=== PATIENT | female | born 1980 | race Caucasian/White ===

== ENCOUNTER 2016-10-24 05:56 | Outpatient (CLI) | payer OTHER ==
[~2016-10-24] VITALS: Ht 160 cm; Wt 71.8 kg
[2016-10-24 06:13] VITALS: Ht 160 cm; Wt 71.8 kg
[2016-10-24] MEDS ORDERED: PRENTAB26 PO ×2 (06:13)
[2016-10-24] MEDS ORDERED: DOCU-94 PO ×2 (06:13)
--- NOTE | 2016-10-27 14:12 | EDITING REQUIRED CODING QUERY ---
DIAGNOSIS NEEDED To promote full compliance with coding requirements relating to patient care, physician participation is requested in all cases of seamless tube mill operator uncertainty. Please assist us with the question(s) below: Coding Question: The patient received care in labor and delivery on 10/24/16 as noted within the record. Please document the diagnosis that is being addressed by the medication/treatment. Provider Response: DIAGNOSIS: uterine contractions Thank you for your assistance, Adeline Bruno - Conditioning Machine Operator
== END 2016-10-24 10:15 | disposition home or self-care (01) ==
LOC: C.LD 05:56 → C.OPB 05:56
PROVIDERS: ATTEND Obstetrics & Gynecology
DX: O62.9 Abnormality of forces of labor, unspecified (principal); Z3A.39 39 weeks gestation of pregnancy

== ENCOUNTER 2016-10-25 19:47 | Inpatient (IN) | payer OTHER ==
[~2016-10-25] VITALS: Ht 160 cm; Wt 70.9 kg
[~2016-10-25 19:47] MED LIST: DOCU-94 PO; PRENTAB26 PO
[2016-10-25] MEDS ORDERED: LACTATED RINGER'S 1000ML 1,000 ML IV SCH (20:29)
[2016-10-25] MEDS ORDERED: LACTATED RINGER'S 1000ML 1,000 ML IV PRN (20:29)
[2016-10-25] MEDS ORDERED: LACTATED RINGER'S 1000ML 500 ML IV PRN ×2 (20:37→23:34)
[2016-10-25] MEDS ORDERED: OXYTOCIN 30 UNITS/500ML NSS IV PRN (20:45)
[2016-10-25 20:49] LABS: HEMATOCRIT 34.7 % (37-47); MEAN CELL VOLUME 87.2 fL (80-100); MEAN CORPUSCULAR HEMOGLOBIN 31.2 pg (25-34); MEAN CORPUSCULAR HGB CONC 35.7 g/dl (32-36); MEAN PLATELET VOLUME 11.1 fL (7.4-10.4); PLATELET COUNT 192 K/uL (130-400); RED BLOOD COUNT 3.98 M/uL (4.2-5.4); WHITE BLOOD COUNT 15.65 K/uL (4.8-10.8)
[2016-10-25 21:29] VITALS: Ht 160 cm; Wt 70.9 kg
[2016-10-25] MEDS ORDERED: FENTANYL 2MCG/ML ROPIV 1.25MG/ML 100ML BAG EPI ONE (22:38)
[2016-10-25] MEDS ORDERED: FENTANYL CITRATE INJ 50 MCG/1 ML 2 ML VIAL ONE (22:38)
[2016-10-25] MEDS ORDERED: EpHEDrine SULFATE INJ 50 MG/ML AMP ONE (22:38)
[2016-10-25] MEDS ORDERED: BUPIVACAINE 0.25% 30 ML VIAL ONE (22:38)
[2016-10-25] MEDS ORDERED: NALOXONE HCL INJ 1 MG in SODIUM CHLORIDE 0.9% 1000ML 1,000 ML IV PRN (23:34)
[2016-10-25] MEDS ORDERED: NALOXONE HCL INJ 0.4 MG/1 ML VIAL/CARP IV PRN (23:45)
[2016-10-25] MEDS ORDERED: ONDANSETRON INJ 2 MG/ML 2 ML VIAL IV PRN (23:45)
[2016-10-25] MEDS ORDERED: NALBUPHINE HCL INJ 10 MG/ML AMP IV PRN (23:45)
[2016-10-25] MEDS ORDERED: EpHEDrine SULFATE INJ 50 MG/ML AMP IV PRN (23:45)
[2016-10-25] MEDS ORDERED: FENTANYL 2MCG/ML ROPIV 1.25MG/ML 100ML BAG EPI PRN (23:45)
[2016-10-25] MEDS ORDERED: DiphenhydrAMINE HCL 50 MG/ML VIAL IV PRN (23:45)
[2016-10-26] MEDS ORDERED: LANOLIN OINT EXT PRN ×2 (03:15)
[2016-10-26] MEDS ORDERED: HYDROCORTISONE ACETATE 25 MG SUPP PR PRN (03:15)
[2016-10-26] MEDS ORDERED: OXYTOCIN 30 UNITS/500ML NSS IV PRN (03:15)
[2016-10-26] MEDS ORDERED: ACETAMINOPHEN 325 MG TAB PO PRN (03:15)
[2016-10-26] MEDS ORDERED: DIPHTHERIA/TETANUS/PERTUSSIS 0.5 ML SYR/VIAL IM. ONE (03:15)
[2016-10-26] MEDS ORDERED: BENZOCAINE 20% AER SPR 82.5 GM CAN EXT PRN (03:15)
[2016-10-26] MEDS: SUPERCREAM 0.870 % 15GM JAR EXT PRN (05:23)
[2016-10-26 05:56] VITALS: BP 101/54; PULSE 74; TEMP 37.2
--- NOTE | 2016-10-26 07:18 | DELIVERY SUMMARY ---
DATE OF OPERATION: 10/26/2016 FINDINGS: Viable female with Apgars of 8 and 9. Baby delivered spontaneously over an intact perineum. Cord blood samples obtained. Placenta delivered spontaneously. Estimated blood loss 300 cc. LABOR NOTE: The patient is a 36-year-old 3 para 1 with an EDC of 10/15/2016 at 41+ weeks gestational age who presented with spontaneous rupture of membranes. The patient states the membranes ruptured at approximately 1830 hours on the 25 of October. Subsequent mild contractions. The patient had been scheduled for induction on 10/26/2016. The patient has had a benign course. Blood type B positive, antibody negative, Rubella immune hepatitis B negative. She declined a quad screen. She had an elevated 1 hour Glucola 28 weeks. The patient refused to do a 2-hour glucose tolerance test. She had a negative third trimester beta strep culture. On admission the patient was 2 cm dilated, 50% effaced, -2 station with a category 2 tracing. Because of the rupture of membranes postdates the patient was started on Pitocin per induction protocol. She progressed to a regular labor pattern. Anesthesia was consulted and an epidural was placed. She progressed to full dilatation, began her second stage. She pushed for approximately 15 minutes delivering the viable female infant over an intact perineum. Cord was clamped and cut. Cord blood samples obtained. Placenta was delivered spontaneously. Estimated blood loss was 300 cc. Sponge and needle count was correct. I attest to the content of the Intraoperative Record and any orders documented therein. Any exceptio ns are noted below.
[2016-10-26] MEDS: DOCUSATE SODIUM 100 MG CAP PO SCH ×2 (07:35→20:40)
[2016-10-26] MEDS: PRENATAL VITAMIN TAB PO SCH (07:35)
[2016-10-26] MEDS: FERROUS SULFATE 325 MG TAB PO SCH (07:35)
[2016-10-26] MEDS: IBUPROFEN 600 MG TAB PO PRN ×3 (07:36→16:51)
[2016-10-26 07:40] VITALS: BP 96/56; PULSE 59; TEMP 36.7; O2SAT 98
--- NOTE | 2016-10-26 08:39 | Anesthesia Procedure Note ---
Anesthesia Epidural Removal Nt Date & Time Oct 26, 2016 at 08:38 Vital Signs Pain Intensity: 4.0 Vital Signs Past 12 Hours Date Time Temp Pulse Resp B/P Pulse Ox O2 Delivery O2 Flow Rate FiO2 10/26/16 06:04 Room Air 10/26/16 05:56 37.2 74 16 101/54 Room Air Notes Mental Status: alert / awake / arousable, participated in evaluation Nausea / Vomiting: adequately controlled Pain: adequately controlled Airway Patency, RR, SpO2: stable & adequate BP & HR: stable & adequate Hydration State: stable & adequate Neuraxial Anesthesia: was administered Anesthetic Complications: no major complications apparent, pt satisfied with anesthetic care Epidural: removed without complications, with tip intact
[2016-10-26 12:50] VITALS: BP 100/65; PULSE 57; TEMP 36.4; O2SAT 97
[2016-10-26 16:50] VITALS: BP 130/77; PULSE 52; TEMP 36.4; O2SAT 97
[2016-10-26 20:00] VITALS: BP 105/59; PULSE 63; TEMP 36.6
[2016-10-26] MEDS: OXYCODONE/ACETAMINOPHEN 5-325 TAB PO PRN (20:41)
[2016-10-27 01:01] VITALS: BP 110/60; PULSE 60; TEMP 36.5
[2016-10-27] MEDS: OXYCODONE/ACETAMINOPHEN 5-325 TAB PO PRN ×2 (02:53→08:46)
--- NOTE | 2016-10-27 06:52 | Progress Note ---
Subjective Oct 27, 2016. Subjective conversation w/ patient, physical exam Ambulation: ambulating normally Voiding: no voiding problems Passing Gas: Yes Diet Tolerance: Regular Diet Lochia: Small Feeding Type: Bottle Feeding Pain: Percocet overnight for cramping Review of Systems Constitutional: No chills, No fever Respiratory: No cough, No shortness of breath Cardiac: No chest pain Breast: No breast pain Abdomen: No nausea, No pain, No vomiting Female : No dysuria Objective Vital Signs Date Time Temp Pulse Resp B/P Pulse Ox O2 Delivery O2 Flow Rate FiO2 10/27/16 01:04 Room Air 10/27/16 01:01 36.5 60 16 110/60 Room Air 10/26/16 20:00 36.6 63 16 105/59 10/26/16 16:50 97 Room Air 10/26/16 16:50 36.4 52 18 130/77 97 Room Air 10/26/16 12:50 36.4 57 20 100/65 97 Room Air 10/26/16 07:40 36.7 59 18 96/56 98 Room Air 10/26/16 07:40 98 Room Air Physical Exam General Appearance: WELL-APPEARING, WD/WN, NO APPARENT DISTRESS Respiratory/Chest: lungs clear, normal breath sounds Cardiovascular: regular rate, rhythm, no gallop, no murmur Abdomen: non tender, soft Fundus: Firm, Relation to Umbilicus (Firm 1cm below umbilicus) Extremities: no calf tenderness Laboratory Results Last 24 Hours Test 10/27/16 04:44 Medications Current Inpatient Medications Medications (Trade) Dose Ordered Sig/Hitesh Route Start Time Stop Time Status Last Admin Dose Admin Oxytocin (Pitocin IV) 30 units UD PRN IV 10/26/16 03:15 11/25/16 03:14 Benzocaine (Dermoplast Aero Spr) 1 appln PRN PRN EXT 10/26/16 03:15 11/25/16 03:14 10/26/16 05:23 1 APPLN Cocaine HCl (Supercream 0.870% Cr) BID PRN EXT 10/26/16 03:15 11/09/16 03:14 10/26/16 05:23 15 GM Hydrocortisone Acetate (Anusol Hc Supp) [address] 10/26/16 03:15 11/25/16 03:14 Lanolin (Lanolin Oint) PRN PRN EXT 10/26/16 03:15 11/25/16 03:14 Prenat Multivit/ [place]/Iron/Folic Ac ( Vitamin Tab) 1 tab DAILY PO 10/26/16 08:00 11/25/16 07:59 10/26/16 07:35 1 TAB Ibuprofen (Motrin Tab) 600 mg Q4H PRN PO 10/26/16 03:15 11/25/16 03:14 10/26/16 16:51 600 MG Acetaminophen (Tylenol Tab) 650 mg Q6H PRN PO 10/26/16 03:15 11/25/16 03:14 10/26/16 11:06 650 MG Bisacodyl (Dulcolax Tab) 5 mg 20 PO 10/27/16 20:00 10/27/16 20:01 Docusate Sodium (coLACE CAP) 100 mg BID PO 10/26/16 08:00 11/25/16 07:59 10/26/16 20:40 100 MG Ferrous Sulfate (Feosol Tab) 325 mg DAILY PO 10/26/16 08:00 11/25/16 07:59 10/26/16 07:35 325 MG Oxycodone/ Acetaminophen (Percocet 5-325mg Tab) `1-2 tabs for pain 1 tab ... Q4H PRN PO 10/26/16 20:15 11/09/16 20:14 10/27/16 02:53 2 TAB Assessment and Plan Post- Day#: 1 Continue Routine Care: - Vital Signs reviewed and WNL (temp max 36.5) - Blood Type: B+, GBS- , Rubella Immune - Patient doing well clinically - Encourage Ambulation today - No pain reported this morning, received a Percocet overnight for cramping - Tolerating PO Diet Well - Discharge today Resident Physician Supervision Note: I interviewed and examined the patient. Discussed with Dr. Germain and agree with findings and plan as documented in the note. Any exceptions or clarifications are listed here: [None] Documented By: Radha Bustillo
--- NOTE | 2016-10-27 07:09 | Discharge Instructions ---
Discharge Instructions Admission Reason for Admission: Check Rupture Discharge Discharge Diagnosis / Problem: Vaginal Delivery Discharge Goals Goal(s): Routine recovery after delivery Medications Continue Dispensed Medications: supercream, dermaplast, tucks Activity Recommendations Activity Limitations: per Instructions/Follow-up section . Instructions / Follow-Up Instructions / Follow-Up ACTIVITY RECOMMENDATIONS: * Gradual return to full activity over the next 2-3 weeks. * No lifting - nothing heavier than baby over the next 2-3 weeks. * Do not engage in vigorous exercise, sexual activity or sports until cleared by your physician. * Do not drive or operate any motorized equipment until cleared by your physician. * You may shower/bathe daily. MEDICATIONS: For discomfort or pain, you may use Acetaminophen (Tylenol), Ibuprofen (Advil), or Naproxen (Aleve) following the package directions. For constipation you may use Colace following the package directions. BREAST CARE: If you are not breast feeding: * Wear a supportive bra 24 hours a day for one to two weeks. * Avoid stimulating your breasts and nipples as much as possible during the first few weeks after delivery. * When taking a shower, have the warm water hit your back, not breasts. * When your breasts feel full, apply ice packs. Usually three to four times a day helps ease the discomfort. * Take a mild pain medication (Tylenol / Motrin) when you are uncomfortable. If breast feeding: * Use breast milk to lubricate nipples. Lansinoh cream may be used for sore nipples. You do not need to remove cream prior to breast feeding. If using a different brand of cream, check the label for directions regarding removal of cream prior to nursing. * Wear a supportive bra. * If having problems with breasts or breast feeding, call a excellence consultant or your health care provider. EPISIOTOMY CARE: After delivery, if you have an episiotomy (stitches), the following steps will ease discomfort and aid healing. * For the first 24 hours after delivery, place ice packs next to your episiotomy to help reduce swelling. * After the first 24 hour-period, sitz baths, either portable or in the tub, are suggested. A shower with a shower arm sprayed over the episiotomy may be comforting. * Maru care should be done after each voiding and bowel movement. Squirt warm water from a plastic bottle over the perineum (region of the body between the anus and urinary opening) and pat dry. * Use Dermoplast to ease discomfort. Shake container. [place] directly over the episiotomy. Place a Tucks on a clean sanitary pad next to your episiotomy. SPECIAL CARE INSTRUCTIONS: When you are discharged from the hospital, it is important for you to follow the instructions listed below: * During the first week at home, you should be able to care for yourself and your baby. In addition, the usual light household activities are encouraged. * Limit your activities to the way you feel. Do not try to clean the house or move furniture. Be sensible. * If you actively engage in sports and have done so up until the time of your delivery, you may resume these activities as soon as you feel able. This may take up to one month or even longer. Use good judgment. * Continue to take your vitamins for at least six weeks after the of your baby. * Your diet need not be limited unless you were on a special diet before your delivery. Breast-feeding mothers need around 2500 calories per day and at least 64-80 ounces of fluid per day (8 to 10 glasses). * You should eat foods from the four major food groups. Crash diets or fad diets are to be avoided. Eating lean meats, fresh fruits and vegetables, low-fat dairy products, high fiber foods and a regular exercise program, will help you get back to your pre- weight without putting your health at risk. * Constipation is sometimes a problem after delivery. Take a mild laxative as needed. If breast feeding, Milk of Magnesia is acceptable to use. You may use a suppository or Fleets enema if no episiotomy. * A daily shower or tub bath is suggested. Be sure to thoroughly and gently dry the perineum. * A bloody vaginal discharge will usually continue until around four weeks post . A small amount of bleeding may continue for as long as six weeks. Vaginal discharge changes from the bright red bleeding after delivery to pink then brownish and finally yellowish-pink before becoming white and disappearing. * Bleeding may increase with activity. Your first period may come in 4-8 weeks. If you are breast feeding, your period may be delayed even longer. * [place] (sex) can begin whenever both you and your partner feel comfortable and do not have any form of genital infection. It is recommended that you wait at least six weeks for internal and external healing to occur. If you have questions, please talk to your health care practitioner. A condom should be used to prevent infection and . * Foreplay, gentle intercourse and lubrication is very important the first several times to prevent pain. A water-based lubricant such as K-Y jelly or Astroglide may be used. * If you have RH negative blood and your baby is RH positive, you will receive RHOGAM by injection prior to discharge. The nurse will give you a card to keep with you that has the date and place that you received RHOGAM after delivery. * During your care, you had a Rubella screen done to check for the presence of rubella antibodies in your blood. If your test was negative, you will receive a Rubella vaccine prior to discharge. This vaccine may cause a fever, soreness at the injection site and flu-like symptoms. If these symptoms persist, notify your health care practitioner. is not advised for one month after a Rubella vaccine. * Verbalizes understanding of car seat law as reviewed with patient nursing. * Car Seat hand-out given and reviewed with patient by nursing. * Shaken baby information reviewed with patient by nursing. Call you doctor if: * Heavy bleeding (saturating several pads an hour) or passing clots the size of your fist. * A fever >101 degrees F (38.3 degrees C) on two occasions four hours apart and /or chills. * Unusual pain in the pelvic or vaginal areas. * "Baby Blues" lasting longer than two weeks. If you have any questions or concerns, call your health care practitioner at . FOLLOW UP VISIT: * Please call the office at to schedule a 6 week examination. It is important you keep this appointment. It is important for you to make arrangements for either yearly or twice yearly check-ups thereafter. Current Hospital Diet Patient's current hospital diet: Regular OB Diet Discharge Diet Recommended Diet: Regular Diet Pending Studies Studies pending at discharge: no Medical Emergencies . Who to Call and When: Medical Emergencies: If at any time you feel your situation is an emergency, please call 911 immediately. . Non-Emergent Contact Non-Emergency issues call your: Marketing Regional Consultant . . "Provider Documentation" section prepared by Erick Germain. VTE Core Measure Inpt VTE Proph given/why not?: Treatment not tolerated
[2016-10-27 07:20] VITALS: BP 101/64; PULSE 56; TEMP 36.8; O2SAT 98
[2016-10-27 07:43] LABS: HEMATOCRIT 33.2 % (37-47)
[2016-10-27] MEDS: FERROUS SULFATE 325 MG TAB PO SCH (08:45)
[2016-10-27] MEDS: PRENATAL VITAMIN TAB PO SCH (08:45)
[2016-10-27] MEDS: DOCUSATE SODIUM 100 MG CAP PO SCH (08:45)
[2016-10-27] MEDS: SUPERCREAM 0.870 % 15GM JAR EXT PRN (12:25)
[2016-10-27 13:10] VITALS: BP_DIAS 64; PULSE 56; TEMP 36.8
[2016-10-27] MEDS ORDERED: BISACODYL 5 MG TABEC PO SCH (20:00)
== END 2016-10-27 13:10 | disposition home or self-care (01) | DRG 775 ==
LOC: C.OPB 19:47 → C.LD 19:47 → C.OPB 20:30 → C.OBG 10-26 05:37
PROVIDERS: ADMIT Obstetrics & Gynecology; ATTEND Obstetrics & Gynecology
PROC: 10E0XZZ Delivery of Products of Conception, External Approach (ICD-10-PCS; principal; 2016-10-26)
DX: O48.0 Post-term pregnancy (principal); Z3A.41 41 weeks gestation of pregnancy; Z37.0 Single live birth